=== PATIENT | male | born 1975 | race Caucasian/White ===

== ENCOUNTER 2021-12-04 15:05 | Emergency (ER) | payer BC, OTHER ==
[~2021-12-04 15:05] MED LIST: BUSPAR 10MG10 MG PO; DEPO-TESTO200 MG/1 M IM; NORCO 5-325 TA1 EACH PO; PERCOCET 5-3251 EACH PO; VITAMIN B-122500 MCG PO; VITAMIN D250000 UNIT PO
[2021-12-04 16:00] LABS: HEMOGLOBIN 15.9 gm/dl (14.0-17.5); RED BLOOD COUNT 5.16 M/UL (4.20-5.50); WHITE BLOOD COUNT 8.5 K/UL (4.5-11.0)
[2021-12-04 17:18] LABS: BUN/CREATININE RATIO 8 (0-10)
[2021-12-04] MEDS ORDERED: ASPIRIN CHEWABL81 MG PO (18:22)
[2021-12-04] MEDS ORDERED: LOPRESSOR 50 MG50 MG GT (18:22)
[2021-12-04] MEDS ORDERED: ISOSORBIDE MONO30 MG PO (18:22)
[2021-12-04] MEDS ORDERED: NITROSTAT0.4 MG SL (18:28)
== END 2021-12-04 19:00 | disposition home or self-care (01) ==
LOC: ER1 15:05
PROVIDERS: Family Medicine
DX: R07.9 Chest pain, unspecified (principal); I10 Essential (primary) hypertension
CPT/HCPCS: 80053; 82550; 82553; 84484; 85025; 93005; 99285